=== PATIENT | female | born 1985 | race African-American/Black ===

== ENCOUNTER 2023-01-18 11:09 | Emergency (ER) | payer OTHER ==
[~2023-01-18] VITALS: Ht 160 cm; Wt 118.2 kg
[2023-01-18] MEDS ORDERED: SEMA2PEN INJ (11:12)
[2023-01-18] MEDS ORDERED: METF-1211 PO (11:12)
[2023-01-18 15:49] LABS: COVID AG,FIA SOURCE NASOPHARYNGEAL
[2023-01-18 17:22] VITALS: BP 128/88
[2023-01-18 17:46] LABS: INFLUENZA TYPE A NEGATIVE FOR TYPE A (NEGATIVE); INFLUENZA TYPE B NEGATIVE FOR TYPE B (NEGATIVE)
[2023-01-18] MEDS ORDERED: OXYM15SP57 NASAL (19:07)
[2023-01-18] MEDS ORDERED: BENZ-227 PO (19:08)
== END 2023-01-18 19:17 | disposition home or self-care (01) ==
LOC: EMS 11:12
DX: J06.9 Acute upper respiratory infection, unspecified (principal); E11.9 Type 2 diabetes mellitus without complications; I10 Essential (primary) hypertension; Z88.5 Allergy status to narcotic agent; Z88.6 Allergy status to analgesic agent; Z20.822 Contact with and (suspected) exposure to COVID-19
CPT/HCPCS: 71045; 82962; 87804; 99284